=== PATIENT | male | born 1940 | race Caucasian/White ===

== ENCOUNTER → 2016-12-28 | Outpatient (CLI) | payer MEDICARE, OTHER | LOC: KOH-I 08:43 | DX: R10.13 Epigastric pain (principal); K80.43 Calculus of bile duct with acute cholecystitis with obstruction; K76.0 Fatty (change of) liver, not elsewhere classified; K44.9 Diaphragmatic hernia without obstruction or gangrene; K57.32 Diverticulitis of large intestine without perforation or abscess without bleeding | CPT/HCPCS: 74176 ==

== ENCOUNTER → 2022-04-06 | Outpatient (CLI) | payer MEDICARE, OTHER ==
[~2022-04-06] MED LIST: BACTROBAN OINT22 GM EXT
== END ==
LOC: KOH-I 08:18
DX: G25.2 Other specified forms of tremor (principal); I66.8 Occlusion and stenosis of other cerebral arteries; G45.8 Other transient cerebral ischemic attacks and related syndromes
CPT/HCPCS: 70450

== ENCOUNTER → 2022-06-04 | Outpatient (CLI) | payer MEDICARE, OTHER | LOC: HEART 5 05-16 11:30 → ECHO 08:42 | DX: I48.91 Unspecified atrial fibrillation (principal); I49.5 Sick sinus syndrome; I08.3 Combined rheumatic disorders of mitral, aortic and tricuspid valves | CPT/HCPCS: ECHO; 93306 ==